=== PATIENT | female | born 1965 | race African-American/Black ===

== ENCOUNTER → 2016-10-31 | Outpatient (CLI) | payer BC ==
[2016-10-31 15:50] LABS: THYROID STIMULATING HORMONE 0.32 uIU/mL (0.47-4.68)
== END ==
LOC: LAB 11:44
PROVIDERS: ATTEND Internal Medicine Geriatric Medicine
DX: N95.9 Unspecified menopausal and perimenopausal disorder (principal)
CPT/HCPCS: 36415; 82306; 84439; 84443

== ENCOUNTER → 2016-12-05 | Outpatient (CLI) | payer BC ==
[2016-12-05 18:14] LABS: FREE T3 4.37 pg/mL (2.77-5.27)
[2016-12-05 18:27] LABS: THYROID STIMULATING HORMONE 0.34 uIU/mL (0.47-4.68)
== END ==
LOC: LAB 17:29
PROVIDERS: ATTEND Internal Medicine Geriatric Medicine
DX: R00.0 Tachycardia, unspecified (principal)
CPT/HCPCS: 36415; 84439; 84443; 84481

== ENCOUNTER → 2017-03-22 | Outpatient (CLI) | payer BC ==
[2017-03-22 09:49] LABS: HEMATOCRIT 39.9 % (36.0-47.0); HEMOGLOBIN 13.1 g/dL (12.0-15.5); HGB HCT DIFFERENCE -0.6; MEAN CORPUSCULAR HGB CONC 32.9 g/dL (32.0-36.0); MEAN CORPUSCULAR VOLUME 82 fl (80-97); RED BLOOD COUNT 4.86 10^6/uL (3.72-5.28); WHITE BLOOD COUNT 7.4 10^3/uL (4.0-10.5)
[2017-03-22 10:13] LABS: ALANINE AMINOTRANSFERASE 63 U/L (9-52); ALBUMIN 4.1 g/dL (3.5-5.0); ALKALINE PHOSPHATASE 109 U/L (38-126); ANION GAP 12 (5-19); ASPARTATE AMINO TRANSFERASE 39 U/L (14-36); BILIRUBIN,DIRECT 0.3 mg/dL (0.0-0.4); BILIRUBIN,TOTAL 0.7 mg/dL (0.2-1.3); BLOOD UREA NITROGEN 12 mg/dL (7-20); CALCIUM 9.8 mg/dL (8.4-10.2); CARBON DIOXIDE 26 mmol/L (22-30); CHLORIDE 104 mmol/L (98-107); CHOLESTEROL 178.66 mg/dL (0-200); CREATININE RESULT 0.78 mg/dL (0.52-1.25); Direct HDL 47 mg/dL (>40); GLUCOSE 98 mg/dL (75-110); POTASSIUM 4.4 mmol/L (3.6-5.0); SODIUM 142.2 mmol/L (137-145); TOTAL PROTEIN 7.8 g/dL (6.3-8.2); TRIGLYCERIDES 112 mg/dL (<150)
[2017-03-22 10:24] LABS: DIRECT LDL 82 mg/dL (<100)
[2017-03-22 10:29] LABS: FREE T3 3.77 pg/mL (2.77-5.27)
[2017-03-22 10:43] LABS: THYROID STIMULATING HORMONE 0.31 uIU/mL (0.47-4.68)
== END ==
LOC: LAB 09:30
PROVIDERS: ATTEND Internal Medicine Geriatric Medicine
DX: I10 Essential (primary) hypertension (principal); E55.9 Vitamin D deficiency, unspecified; Z68.41 Body mass index [BMI] 40.0-44.9, adult
CPT/HCPCS: 36415; 80053; 80061; 82306; 84439; 84443; 84481; 85027

== ENCOUNTER → 2017-08-02 | Outpatient (CLI) | payer BC ==
[2017-08-02 17:13] LABS: ABSOLUTE BASOPHILS # (AUTO) 0.1 10^3/uL (0.0-0.2); ABSOLUTE EOSINOPHILS # (AUTO) 0.4 10^3/uL (0.0-0.6); ABSOLUTE MONOCYTES (AUTO) 0.6 10^3/uL (0.1-1.4); ABSOLUTE NEUT (AUTO) 5.7 10^3/uL (1.7-8.2); BASOPHILS % (AUTO) 0.7 % (0-2); EOSINOPHILS % (AUTO) 3.7 % (0-6); HEMATOCRIT 40.1 % (36.0-47.0); HEMOGLOBIN 13.6 g/dL (12.0-15.5); HGB HCT DIFFERENCE 0.7; LYMPHOCYTES % (AUTO) 30.9 % (13-45); MEAN CORPUSCULAR HEMOGLOBIN 27.5 pg (27.0-33.4); MEAN CORPUSCULAR VOLUME 81 fl (80-97); MONOCYTES % (AUTO) 6.4 % (3-13); RED BLOOD COUNT 4.95 10^6/uL (3.72-5.28); RED CELL DISTRIBUTION WIDTH 14.4 % (11.5-14.0); SEGMENTED NEUTROPHILS % (AUTO) 58.3 % (42-78); WHITE BLOOD COUNT 9.9 10^3/uL (4.0-10.5)
== END ==
LOC: OD 16:36
PROVIDERS: ATTEND Specialist
DX: D64.9 Anemia, unspecified (principal)
CPT/HCPCS: 36415; 85025

== ENCOUNTER → 2018-08-14 | Outpatient (CLI) | payer BC ==
[2018-08-14 09:44] LABS: ABSOLUTE BASOPHILS # (AUTO) 0.1 10^3/uL (0.0-0.2); ABSOLUTE EOSINOPHILS # (AUTO) 0.2 10^3/uL (0.0-0.6); ABSOLUTE LYMPHOCYTES (AUTO) 2.1 10^3/uL (0.5-4.7); ABSOLUTE MONOCYTES (AUTO) 0.5 10^3/uL (0.1-1.4); ABSOLUTE NEUT (AUTO) 4.9 10^3/uL (1.7-8.2); BASOPHILS % (AUTO) 0.7 % (0-2); EOSINOPHILS % (AUTO) 2.5 % (0-6); HEMATOCRIT 37.6 % (36.0-47.0); HEMOGLOBIN 12.7 g/dL (12.0-15.5); LYMPHOCYTES % (AUTO) 26.7 % (13-45); MEAN CORPUSCULAR HGB CONC 33.7 g/dL (32.0-36.0); MEAN CORPUSCULAR VOLUME 80 fl (80-97); PLATELET COUNT 288 10^3/uL (150-450); RED CELL DISTRIBUTION WIDTH 14.7 % (11.5-14.0); SEGMENTED NEUTROPHILS % (AUTO) 63.1 % (42-78); TOTAL CELLS COUNTED % (AUTO) 100 %; WHITE BLOOD COUNT 7.7 10^3/uL (4.0-10.5)
[2018-08-14 10:43] LABS: ALANINE AMINOTRANSFERASE 23 U/L (9-52); ALBUMIN 4.1 g/dL (3.5-5.0); ALKALINE PHOSPHATASE 122 U/L (38-126); ANION GAP 7 (5-19); ASPARTATE AMINO TRANSFERASE 30 U/L (14-36); BILIRUBIN,DIRECT 0.2 mg/dL (0.0-0.4); BILIRUBIN,TOTAL 0.5 mg/dL (0.2-1.3); BLOOD UREA NITROGEN 17 mg/dL (7-20); CALCIUM 9.7 mg/dL (8.4-10.2); CARBON DIOXIDE 28 mmol/L (22-30); CHLORIDE 103 mmol/L (98-107); CHOLESTEROL 204.95 mg/dL (0-200); GLUCOSE 109 mg/dL (75-110); POTASSIUM 4.4 mmol/L (3.6-5.0); TOTAL PROTEIN 7.6 g/dL (6.3-8.2); TRIGLYCERIDES 135 mg/dL (<150)
[2018-08-14 10:54] LABS: DIRECT LDL 109 mg/dL (<100)
== END ==
LOC: LAB 09:27
PROVIDERS: ATTEND Internal Medicine Geriatric Medicine
DX: I10 Essential (primary) hypertension (principal); E55.9 Vitamin D deficiency, unspecified
CPT/HCPCS: 36415; 80053; 80061; 82306; 85025

== ENCOUNTER → 2018-09-18 | Outpatient (CLI) | payer BC ==
[2018-09-18 17:26] LABS: ABSOLUTE BASOPHILS # (AUTO) 0.1 10^3/uL (0.0-0.2); ABSOLUTE EOSINOPHILS # (AUTO) 0.4 10^3/uL (0.0-0.6); ABSOLUTE LYMPHOCYTES (AUTO) 2.9 10^3/uL (0.5-4.7); ABSOLUTE MONOCYTES (AUTO) 0.6 10^3/uL (0.1-1.4); ABSOLUTE NEUT (AUTO) 4.8 10^3/uL (1.7-8.2); BASOPHILS % (AUTO) 1.3 % (0-2); EOSINOPHILS % (AUTO) 4.1 % (0-6); HEMATOCRIT 41.1 % (36.0-47.0); HEMOGLOBIN 14.1 g/dL (12.0-15.5); LYMPHOCYTES % (AUTO) 32.9 % (13-45); MEAN CORPUSCULAR HEMOGLOBIN 27.8 pg (27.0-33.4); MEAN CORPUSCULAR HGB CONC 34.3 g/dL (32.0-36.0); MEAN CORPUSCULAR VOLUME 81 fl (80-97); MONOCYTES % (AUTO) 6.4 % (3-13); PLATELET COUNT 317 10^3/uL (150-450); RED BLOOD COUNT 5.08 10^6/uL (3.72-5.28); RED CELL DISTRIBUTION WIDTH 14.9 % (11.5-14.0); SEGMENTED NEUTROPHILS % (AUTO) 55.3 % (42-78); TOTAL CELLS COUNTED % (AUTO) 100 %; WHITE BLOOD COUNT 8.7 10^3/uL (4.0-10.5)
[2018-09-18 17:34] LABS: ALANINE AMINOTRANSFERASE 35 U/L (9-52); ALBUMIN 4.4 g/dL (3.5-5.0); ALKALINE PHOSPHATASE 138 U/L (38-126); ANION GAP 10 (5-19); ASPARTATE AMINO TRANSFERASE 23 U/L (14-36); BILIRUBIN,DIRECT 0.3 mg/dL (0.0-0.4); BILIRUBIN,TOTAL 0.6 mg/dL (0.2-1.3); BLOOD UREA NITROGEN 17 mg/dL (7-20); CALCIUM 10.4 mg/dL (8.4-10.2); CARBON DIOXIDE 31 mmol/L (22-30); CHLORIDE 100 mmol/L (98-107); GLUCOSE 136 mg/dL (75-110); POTASSIUM 3.8 mmol/L (3.6-5.0); SODIUM 141.3 mmol/L (137-145); TOTAL PROTEIN 8.5 g/dL (6.3-8.2)
[2018-09-18 17:50] LABS: FREE T3 3.61 pg/mL (2.77-5.27); FREE T4 (FREE THYROXINE) 1.02 ng/dL (0.78-2.19)
[2018-09-18 18:03] LABS: THYROID STIMULATING HORMONE 0.45 uIU/mL (0.47-4.68)
== END ==
LOC: LAB 16:46
PROVIDERS: ATTEND Internal Medicine Geriatric Medicine
DX: E34.9 Endocrine disorder, unspecified (principal)
CPT/HCPCS: 36415; 80053; 82306; 82670; 83001; 84403; 84439; 84443; 84481; 85025; 86376

== ENCOUNTER → 2018-11-15 | Outpatient (CLI) | payer BC | LOC: OD 14:14 | PROVIDERS: ATTEND Internal Medicine Geriatric Medicine | DX: E34.9 Endocrine disorder, unspecified (principal) | CPT/HCPCS: 36415; 82670; 83001; 84403 ==

== ENCOUNTER → 2019-02-01 | Outpatient (CLI) | payer BC ==
[2019-02-01 11:01] LABS: ALANINE AMINOTRANSFERASE 37 U/L (9-52); ALBUMIN 4.2 g/dL (3.5-5.0); ALKALINE PHOSPHATASE 99 U/L (38-126); ANION GAP 8 (5-19); ASPARTATE AMINO TRANSFERASE 25 U/L (14-36); BILIRUBIN,DIRECT 0.3 mg/dL (0.0-0.4); BILIRUBIN,TOTAL 0.6 mg/dL (0.2-1.3); BLOOD UREA NITROGEN 15 mg/dL (7-20); CALCIUM 10.1 mg/dL (8.4-10.2); CARBON DIOXIDE 27 mmol/L (22-30); CHLORIDE 103 mmol/L (98-107); GLUCOSE 78 mg/dL (75-110); SODIUM 138.2 mmol/L (137-145); TOTAL PROTEIN 7.9 g/dL (6.3-8.2)
[2019-02-01 11:17] LABS: FREE T3 4.32 pg/mL (2.77-5.27); FREE T4 (FREE THYROXINE) 1.17 ng/dL (0.78-2.19)
[2019-02-01 11:31] LABS: THYROID STIMULATING HORMONE 0.73 uIU/mL (0.47-4.68)
== END ==
LOC: OD 09:14
PROVIDERS: ATTEND Internal Medicine Geriatric Medicine
DX: I10 Essential (primary) hypertension (principal); R94.6 Abnormal results of thyroid function studies
CPT/HCPCS: 36415; 80053; 84436; 84439; 84443; 84481

== ENCOUNTER → 2019-06-20 | Outpatient (CLI) | payer BC ==
[2019-06-20 18:09] LABS: ANION GAP 9 (5-19); BLOOD UREA NITROGEN 11 mg/dL (7-20); CALCIUM 10.1 mg/dL (8.4-10.2); CARBON DIOXIDE 26 mmol/L (22-30); CHLORIDE 102 mmol/L (98-107); GLUCOSE 76 mg/dL (75-110); POTASSIUM 4.3 mmol/L (3.6-5.0)
== END ==
LOC: OD 16:21
PROVIDERS: ATTEND Internal Medicine Geriatric Medicine
DX: L68.0 Hirsutism (principal)
CPT/HCPCS: 36415; 80048

== ENCOUNTER → 2019-07-18 | Outpatient (CLI) | payer BC ==
[2019-07-18 08:25] LABS: HEMATOCRIT 39.7 % (36.0-47.0); HEMOGLOBIN 13.4 g/dL (12.0-15.5); MEAN CORPUSCULAR HEMOGLOBIN 27.8 pg (27.0-33.4); MEAN CORPUSCULAR HGB CONC 33.7 g/dL (32.0-36.0); MEAN CORPUSCULAR VOLUME 82 fl (80-97); PLATELET COUNT 262 10^3/uL (150-450); RED BLOOD COUNT 4.82 10^6/uL (3.72-5.28); RED CELL DISTRIBUTION WIDTH 15.1 % (11.5-14.0); WHITE BLOOD COUNT 7.1 10^3/uL (4.0-10.5)
[2019-07-18 08:51] LABS: CHOLESTEROL 186.78 mg/dL (0-200); TRIGLYCERIDES 94 mg/dL (<150)
[2019-07-18 09:02] LABS: DIRECT LDL 124 mg/dL (<100)
[2019-07-18 09:10] LABS: FREE T3 4.33 pg/mL (2.77-5.27)
[2019-07-18 09:24] LABS: THYROID STIMULATING HORMONE 0.88 uIU/mL (0.47-4.68)
== END ==
LOC: OD 07:46
PROVIDERS: ATTEND Internal Medicine Geriatric Medicine
DX: N95.1 Menopausal and female climacteric states (principal); R68.82 Decreased libido; R53.83 Other fatigue
CPT/HCPCS: 36415; 80061; 82670; 83001; 84403; 84436; 84443; 84481; 85027; 86376

== ENCOUNTER → 2019-09-13 | Outpatient (CLI) | payer BC ==
[2019-09-13 11:22] LABS: ALBUMIN 3.9 g/dL (3.5-5.0); ALKALINE PHOSPHATASE 86 U/L (38-126); ANION GAP 10 (5-19); ASPARTATE AMINO TRANSFERASE 22 U/L (14-36); BILIRUBIN,DIRECT 0.1 mg/dL (0.0-0.4); BILIRUBIN,TOTAL 0.3 mg/dL (0.2-1.3); BLOOD UREA NITROGEN 16 mg/dL (7-20); CALCIUM 9.6 mg/dL (8.4-10.2); CARBON DIOXIDE 22 mmol/L (22-30); CHLORIDE 111 mmol/L (98-107); GLUCOSE 87 mg/dL (75-110); POTASSIUM 4.4 mmol/L (3.6-5.0); TOTAL PROTEIN 7.3 g/dL (6.3-8.2)
--- NOTE | 2019-09-13 17:31 | EKG REPORT ---
SEVERITY:- ABNORMAL ECG - SINUS RHYTHM NONSPECIFIC T ABNORMALITIES, INFERIOR LEADS : Confirmed by: Enrique Gonsalez MD 13-Sep-2019 17:30:59
== END ==
LOC: OD 10:13
PROVIDERS: ATTEND Internal Medicine Geriatric Medicine
DX: I10 Essential (primary) hypertension (principal)
CPT/HCPCS: 36415; 80053; 93005; 93010

== ENCOUNTER → 2019-11-18 | Outpatient (CLI) | payer BC | LOC: OD 16:42 | PROVIDERS: ATTEND Internal Medicine Geriatric Medicine | DX: N95.1 Menopausal and female climacteric states (principal); R68.82 Decreased libido; R53.83 Other fatigue | CPT/HCPCS: 36415; 82670; 83001; 84144; 84270; 84402; 84403 ==

== ENCOUNTER → 2019-12-15 | Outpatient (CLI) | payer BC ==
[2019-12-15 17:44] LABS: HEMATOCRIT 41.9 % (36.0-47.0); HEMOGLOBIN 14.1 g/dL (12.0-15.5); MEAN CORPUSCULAR HEMOGLOBIN 28.3 pg (27.0-33.4); MEAN CORPUSCULAR HGB CONC 33.5 g/dL (32.0-36.0); MEAN CORPUSCULAR VOLUME 84 fl (80-97); PLATELET COUNT 297 10^3/uL (150-450); RED BLOOD COUNT 4.97 10^6/uL (3.72-5.28); WHITE BLOOD COUNT 8.7 10^3/uL (4.0-10.5)
== END ==
LOC: OD 16:44
PROVIDERS: ATTEND Internal Medicine Geriatric Medicine
DX: N95.1 Menopausal and female climacteric states (principal); R53.83 Other fatigue; R68.82 Decreased libido
CPT/HCPCS: 36415; 82670; 83001; 84403; 85027

== ENCOUNTER → 2020-03-05 | Outpatient (CLI) | payer BC ==
[2020-03-05 17:48] LABS: ANION GAP 7 (5-19); BLOOD UREA NITROGEN 18 mg/dL (7-20); CALCIUM 9.8 mg/dL (8.4-10.2); CARBON DIOXIDE 27 mmol/L (22-30); CHLORIDE 99 mmol/L (98-107); GLUCOSE 87 mg/dL (75-110)
[2020-03-05 18:06] LABS: FREE T3 4.56 pg/mL (2.77-5.27)
[2020-03-05 18:20] LABS: THYROID STIMULATING HORMONE 0.59 uIU/mL (0.47-4.68)
== END ==
LOC: OD 16:42
PROVIDERS: ATTEND Internal Medicine Geriatric Medicine
DX: L68.0 Hirsutism (principal); R53.83 Other fatigue; E66.9 Obesity, unspecified
CPT/HCPCS: 36415; 80048; 84436; 84443; 84481; 86376

== ENCOUNTER → 2020-09-06 | Outpatient (CLI) | payer BC ==
[2020-09-06 08:45] LABS: ABSOLUTE BASOPHILS # (AUTO) 0.1 10^3/uL (0.0-0.2); ABSOLUTE EOSINOPHILS # (AUTO) 0.3 10^3/uL (0.0-0.6); ABSOLUTE LYMPHOCYTES (AUTO) 2.1 10^3/uL (0.5-4.7); ABSOLUTE MONOCYTES (AUTO) 0.4 10^3/uL (0.1-1.4); ABSOLUTE NEUT (AUTO) 4.1 10^3/uL (1.7-8.2); BASOPHILS % (AUTO) 0.8 % (0-2); EOSINOPHILS % (AUTO) 4.4 % (0-6); HEMATOCRIT 37.5 % (36.0-47.0); HEMOGLOBIN 12.7 g/dL (12.0-15.5); LYMPHOCYTES % (AUTO) 29.6 % (13-45); MEAN CORPUSCULAR HEMOGLOBIN 28.5 pg (27.0-33.4); MEAN CORPUSCULAR HGB CONC 33.9 g/dL (32.0-36.0); MEAN CORPUSCULAR VOLUME 84 fl (80-97); MONOCYTES % (AUTO) 5.8 % (3-13); PLATELET COUNT 287 10^3/uL (150-450); RED BLOOD COUNT 4.47 10^6/uL (3.72-5.28); RED CELL DISTRIBUTION WIDTH 13.7 % (11.5-14.0); SEGMENTED NEUTROPHILS % (AUTO) 59.4 % (42-78); TOTAL CELLS COUNTED % (AUTO) 100 %
[2020-09-06 09:08] LABS: ALBUMIN 4.1 g/dL (3.5-5.0); ALKALINE PHOSPHATASE 115 U/L (38-126); ANION GAP 8 (5-19); ASPARTATE AMINO TRANSFERASE 35 U/L (14-36); BILIRUBIN,DIRECT 0.2 mg/dL (0.0-0.4); BILIRUBIN,TOTAL 0.4 mg/dL (0.2-1.3); BLOOD UREA NITROGEN 19 mg/dL (7-20); CALCIUM 9.8 mg/dL (8.4-10.2); CARBON DIOXIDE 26 mmol/L (22-30); CHLORIDE 103 mmol/L (98-107); CHOLESTEROL 178.49 mg/dL (0-200); GLUCOSE 99 mg/dL (75-110); POTASSIUM 4.3 mmol/L (3.6-5.0); TOTAL PROTEIN 7.5 g/dL (6.3-8.2); TRIGLYCERIDES 222 mg/dL (<150)
[2020-09-06 09:20] LABS: DIRECT LDL 87 mg/dL (<100)
[2020-09-06 09:29] LABS: VLDL CHOLESTEROL 44.4 mg/dL (10-31)
== END ==
LOC: OD 07:44
PROVIDERS: ATTEND Internal Medicine Geriatric Medicine
DX: I10 Essential (primary) hypertension (principal)
CPT/HCPCS: 36415; 80053; 80061; 85025

== ENCOUNTER → 2020-09-24 | Outpatient (CLI) | payer BC ==
[2020-09-24 10:12] VITALS: BP 123/79
--- NOTE | 2020-09-24 10:12 | ER RDC ASSESSMENT REPORT ---
Intake - In the Last 14 days Have you traveled outside [place]?: No Have you been in close contact with someone CONFIRMED: Yes Worked in Healthcare?: Yes - Symptoms Subjective Fever([place] feverish): No Chills: No Muscule Aches: No Runny Nose: No Sore Throat: No Cough (New or worsening chronic cough): No Shortness of breath: No Nausea or Vomiting: No Headache: No Abdominal Pain: No Diarrhea(3 or more loose stools in last 24 hours): No - Do you have any of the following Chronic lung disease: Asthma or emphysema or COPD: No Cystic Fibrosis: No Diabetes: No High Blood Pressure: Yes Cardiovascular Disease: No Chronic Kidney Disease: No Chronic Liver Disease: No Chronic blood disorder like Sickle Cell Disease: No Weak immune system due to disease or medication: No Neurologic condition that limits movement: No Developmental delay - Moderate to Severe: No Recent (within past 2 weeks) or current : No Morbid Obesity (>100 pounds over ideal weight): No - Objective Temperature: 97.9 F Pulse Rate: 88 Respiratory Rate: 18 Blood Pressure: 123/79 O2 Sat by Pulse Oximetry: 96 Objective: Given above, testing performed: covid, strep, flu- employee Disposition: Home; Selfcare General - General Stated Complaint: asymptomatic, covid testing Time Seen by Provider: 09/24/20 09:45 Mode of Arrival: Ambulatory Information source: Patient - HPI Notes: Patient presents to clinic for COVID-19 testing after coming in close contact with another COVID 19 positive individual. Patient is asymptomatic. They deny any cough, shortness of breath, fever, chills, muscle aches, rhinorrhea, sore throat, nausea or vomiting, headache, abdominal pain or diarrhea. Patient has no acute medical concerns. - Related Data Allergies/Adverse Reactions: No Known Allergies Allergy (Verified 03/04/15 13:29) Past Medical History - General Information source: Patient - Social History Smoking Status: Never Smoker - Past Medical History Cardiac Medical History: Reports: Hx Hypertension Denies: Hx Coronary Artery Disease, Hx Heart Attack Pulmonary Medical History: Reports: None Denies: Hx Asthma, Hx Bronchitis, Hx COPD, Hx Pneumonia EENT Medical History: Reports: None Neurological Medical History: Reports: None. Denies: Hx Cerebrovascular Accident, Hx Seizures Endocrine Medical History: Reports: None Renal/ Medical History: Reports: None Malignancy Medical History: Reports: None GI Medical History: Reports: None Musculoskeletal Medical History: Reports None, Denies Hx Arthritis Skin Medical History: Reports None Psychiatric Medical History: Reports: None Traumatic Medical History: Reports: None Infectious Medical History: Reports: None Past Surgical History: Reports: Hx Breast Surgery, Hx Section. Denies: Hx Hysterectomy Physical Exam - General General appearance: Appears well, Alert In distress: None Notes: PHYSICAL EXAMINATION: GENERAL: Well-appearing and in no acute distress. HEAD: Atraumatic, normocephalic. EYES: sclera anicteric, conjunctiva are normal. ENT: nares patent. Moist mucous membranes. NECK: Normal range of motion, supple without lymphadenopathy. LUNGS: No increased work of breathing. Lung sounds CTAB and equal. No wheezes rales or rhonchi. HEART: Regular rate and rhythm without murmurs. ABDOMEN: Soft, nontender, normal bowel sounds, no guarding. EXTREMITIES: Normal range of motion, no pitting edema. No cyanosis. NEUROLOGICAL: A&O x 3. Normal speech. PSYCH: Normal mood, normal affect. SKIN: Warm, Dry, normal turgor, no rashes or lesions noted Patient Education/Counseling Counseling/Education: Patient presents for COVID 19 testing after close exposure to another person who has tested positive for COVID 19. Patient is asymptomatic at this time. Patient does not have emergency worrying symptoms such as difficulty breathing, shortness of breath, chest pain, pressure, confusion or cyanosis. Patient appears suitable for discharge as vital signs are stable and patient is nontoxic in appearance. Good return precautions have been discussed with patient, patient verbalized understanding and is agreeable with discharge plan of care at this time. Guidance for worsening S/SX: As a person under investigation for Covid 19, the [place] department of Health and Human Services, division of public health advises you to adhere to the following guidance until your test results are reported to you. If your test result is positive, you will receive additional information from your provider and your local health department at that time. Remain at home until you are cleared by the health provider or public health authorities. Keep a log of visitors to your home, notify any visitors to your home of your isolation status. If you plan to move to a new address or leave the county, notify the local health department in your County. Call your doctor or seek care if you have an urgent medical need. Before seeking medical care, call ahead to get instructions from the provider before arriving at the medical office clinic or hospital. Notify them that you are being tested for the virus that causes Covid 19 so that arrangements can be made, as necessary, to prevent transmission to others in the healthcare setting. Next, notify the local health department in your county. If a medical emergency arises and you need to call 911, inform the first responders that you are being tested for the virus that causes Covid 19. Next, notify the local health department in your county. RDC Discharge - Discharge Clinical Impression: Encounter for screening laboratory testing for COVID-19 virus in asymptomatic patient Condition: Good Disposition: Home; Selfcare
[2020-09-24 12:43] LABS: A TYPE INFLUENZA AG NEGATIVE (NEGATIVE); B INFLUENZA AG NEGATIVE (NEGATIVE)
== END ==
LOC: RDC 09:34
PROVIDERS: ATTEND Registered Nurse
DX: Z20.828 Contact with and (suspected) exposure to other viral communicable diseases (principal); I10 Essential (primary) hypertension
CPT/HCPCS: 87070; 87880; 87804; U0003; C9803; 87635; 99201; 99211